=== PATIENT | male | born 1995 | race Hispanic/Latino ===

== ENCOUNTER 2020-04-11 17:31 | Emergency (ER) | payer SELFPAY ==
[~2020-04-11] VITALS: Ht 167.6 cm; Wt 79.4 kg
[2020-04-11] MEDS ORDERED: PROPOFOL IV EMULSION 10MG/ML 100ML BTL IV STA (17:41)
[2020-04-11] MEDS ORDERED: SODIUM CHLORIDE 0.9% 1000ML 1,000 ML IV STA (17:41)
--- NOTE | 2020-04-11 17:54 | Emergency Department Note ---
History of Present Illnes History of Present Illness History of Present Illness This is a 25 year old male fell about 3 feet off the ground at work, dislocated his right shoulder, went to the clinic, has a xray done, sent over ER for reduction. . Arrival Mode: Car Onset (how long ago): hour(s) Radiation: Reports extremity Severity: severe Duration (how long): hour(s) (1 hour) Progression: unchanged Chronicity: new Relieving factors: none Exacerbating factors: none Associated symptoms: Reports denies other symptoms, Reports other Treatments prior to arrival: none Past Medical/Family History Physician Review I have reviewed the patient's past medical and family history. Any updates have been documented here. Past Medical History Recent Fever: No Clinical Suspicion of Infectio: No New/Unexplained Change in Ment: No Past Medical History: None Past Surgical History: None Social History Smoking Cessation: Never Smoker Counseling Performed: No Any Illegal Drug Use: No Family History Family history of heart diseas: No Other Any Pre-Existing Lines (PICC,: No Review of Systems Review of Systems Constitutional: Reports no symptoms EENTM: Reports no symptoms Cardiovascular: Reports no symptoms Respiratory: Reports no symptoms Gastrointestinal: Reports no symptoms Genitourinary: Reports no symptoms Musculoskeletal: Reports joint pain, Reports muscle pain Integumentary: Reports no symptoms Neurological: Reports no symptoms Psychological: Reports no symptoms Endocrine: Reports no symptoms Hematological/Lymphatic: Reports no symptoms Physical Exam Related Data Allergies: Coded Allergies: No Known Allergies (Unverified , 04/11/20) Vital signs reviewed: Yes Physical Exam CONSTITUTIONAL Constitutional: Present well-developed, Present well-nourished HENT HENT: Present normocephalic, Present atraumatic, Present oropharynx clear/moist, Present nose normal HENT L/R: Present left ext ear normal, Present right ext ear normal EYES Eyes: Reports PERRL, Reports conjunctivae normal NECK Neck: Present ROM normal PULMONARY Pulmonary: Present effort normal, Present breath sounds normal CARDIOVASCULAR Cardiovascular: Present regular rhythm, Present heart sounds normal, Present capillary refill normal, Present normal rate GASTROINTESTINAL Abdominal: Present soft, Present nontender, Present bowel sounds normal GENITOURINARY Genitourinary: Present exam deferred SKIN Skin: Present warm, Present dry MUSCULOSKELETAL Musculoskeletal: Present deformity (right shoulder protruded), Present tenderness, Present swelling NEUROLOGICAL Neurological: Present alert, Present oriented x 3, Present no gross motor or sensory deficits PSYCHOLOGICAL Psychological: Present mood/affect normal, Present judgement normal Results Imaging Imaging results reviewed: Yes Procedures Orthopedic Joint Reduction Time out performed: Yes Joint reduction location: shoulder Analgesia: procedural sedation (propofol was used, total 200 mg, given in increments. ) Shoulder technique used (if ap: traction/counter-traction Post-reduction neuor exam: intact Post-reduction vascular exam: intact Post-reduction xrays obtained: Yes Xray results: reduced Splint applied: Yes Patient tolerated procedure: well Additional comments shoulder immobilizer applied, patient tolerated the procedure well Procedural Sedation Indication: fracture/dislocation reduction ASA class: I Time of last PO intake: 13:00 Preparation: monitor technician applied, pulse oximeter, supplemental O2 applied, suction/airway equip at bedside, IV secured IV Propofol dose (mg): 200 (push in 30-40 mg increments) Patient tolerated procedure: well Complications: none Additional comments Zofran and pepcid were given prior Assessment & Plan Medical Decision Making MDM dislocated right shoulder, need reduction Reassessment Reassessment AAO x 3, in NAD Assessment & Plan Final Impression: (1) Acute pain due to trauma (2) Dislocation of right shoulder joint Depart Disposition: HOME, SELF-[facility] Meds Active Scripts Ondansetron Hcl* (ZOFRAN*) 4 Mg Tablet, 4 MG SL Q6H PRN for NAUSEA, #14 MG 0 Refills Prov:JENNIFFER LEMUS MD 04/11/20 Ibuprofen (IBUPROFEN IB) 200 Mg Tablet, 3 TAB PO Q6H PRN for pain, #90 Prov:JENNIFFER LEMUS MD 04/11/20 Acetaminophen/Codeine* (TYLENOL # 3*) 1 Ea Tab, 1 TAB PO Q4HR PRN for pain or cough, #30 Prov:JENNIFFER LEMUS MD 04/11/20 Physician Attestation Provider Attestation f/u Dr Megan Rosario 3-4 days JENNIFFER LEMUS MD Apr 11, 2020 17:53
[2020-04-11] MEDS ORDERED: PROPOFOL IV EMULSION 10 MG/ML 20 ML VIAL ONE (18:31)
[2020-04-11] MEDS ORDERED: SODIUM CHLORIDE 0.9% 1000ML 1,000 ML ONE (18:38)
--- NOTE | 2020-04-11 18:40 | NUR ---
procedure VS 1841 - [address] Abbott 1843- [address] Abbott 1844- [address] Abbott 1844- 153/93 HR 88 spo2 99% 1845- 150/78 hr 82 spo2 100 propofol [address] abbott 1846 propofol 37.[address] abbott BP 144/79 hr 76 spo2 100 1848- propofol 37.[address] abbott 184- shoulder immobilizerplaced 1850- 143/96 hr 70 spo2 100 rr 16 1851- 135/73 HR 70 spo2 100 procedure completed 1853- 143/76 hr 82 spo2 100% 1855- 142/70 hr 78 spo2 100% 1900- 147/80 hr 65 spo2 100 1915 147/77 hr 68 sp02 100% 1928- 148/81 hr 71 sp02 100% 2000- 140/71 hr 82 spo2 100% on ra pt alert and oriented x3
[2020-04-11] MEDS ORDERED: ONDANSETRON HCL INJ 2MG/ML 2ML 2 MG/ML VIAL IV ONE (18:45)
[2020-04-11] MEDS ORDERED: FAMOTIDINE 20 MG/2 ML VIAL IV ONE (18:45)
[2020-04-11] MEDS ORDERED: ZOFRAN4 MG SL (18:56)
[2020-04-11] MEDS ORDERED: IBUPROFEN IB200 MG PO (18:56)
[2020-04-11] MEDS ORDERED: TYLENOL # 31 EA PO (18:56)
--- NOTE | 2020-04-11 19:50 | Diagnostic Imaging Report ---
SHOULDER 1VW RT - HOPD - 3 views HISTORY: Status post closed reduction of dislocated right shoulder.. COMPARISON: None available. FINDINGS: Bones/joints: There is no acute fracture identified. However, given limited examination of the shoulder joint due to single view, it is difficult to assess for alignment. Soft tissues: The soft tissues appear unremarkable. The partially imaged right hemithorax is clear. IMPRESSION: 1. No acute fracture. 2. Shoulder dislocation cannot be fully assessed on single image. Recommend obtaining axillary or scapular Y views. Signed by: Talib Brown MD on 04/11/2020 7:47 PM
--- NOTE | 2020-04-11 20:07 | NUR ---
report given to Chrystal SHIN
--- NOTE | 2020-04-11 20:26 | NUR ---
PT UP TO RESTROOM WITH MYSELF AT HIS SIDE. PT IS A&OX4. STEADY GAIT. NO COMPLAINTS AT THIS TIME. INFORMED
--- NOTE | 2020-04-11 20:32 | NUR ---
PT WALKING AROUND IN HIS ROOM. PT IS AWARE HE HAS TO BE ALERT AND ACTIVELY ABLE TO AMB WITHOUT DIFF. PT AWAITING REPEAT XR
--- NOTE | 2020-04-11 20:47 | NUR ---
PT AMB TO XR WITH STEADY GAIT AT RT SIDE.
--- NOTE | 2020-04-11 20:49 | NUR ---
RETURNED FROM XR TO RM 2.
--- NOTE | 2020-04-11 21:08 | Diagnostic Imaging Report ---
SHOULDER 1VW RT - HOPD - views HISTORY: Status post closed reduction of right shoulder dislocation. COMPARISON: None available. FINDINGS: Bones/joints: No evidence of fracture. The glenohumeral joint is well aligned. Soft tissues: No focal soft tissue abnormality. Others: The partially imaged right lung is clear. IMPRESSION: Closed reduction of right shoulder with normal glenohumeral alignment. Signed by: Talib Brown MD on 04/11/2020 9:04 PM
[2020-04-11 21:25] VITALS: BP 140/70
== END 2020-04-11 21:25 | disposition home or self-care (01) ==
LOC: FSED 18:05
DX: S43.084A Other dislocation of right shoulder joint, initial encounter (principal); W17.89XA Other fall from one level to another, initial encounter; Y99.0 Civilian activity done for income or pay
CPT/HCPCS: 23655; 73020; 96374; 96376; 99284; J2405; J2704 ×2; J7030